=== PATIENT | male | born 1965 | race Two or more races ===

== ENCOUNTER 2024-02-02 11:44 | Inpatient (IN) | payer OTHER ==
[2024-02-02 13:08] VITALS: BMI 24.2
[2024-02-02] MEDS ORDERED: NALOXONE (NYS OPIOID OVERDOSE PROGRAM) 4 MG/0.1 ML SPRAY NS PRN (19:32)
[2024-02-02] MEDS ORDERED: hydrOXYzine PAMOATE 25 MG CAPSULE (FP) PO PRN (19:32)
[2024-02-02] MEDS ORDERED: IBUPROFEN 600 MG TABLET (FP) PO PRN (19:32)
[2024-02-02] MEDS ORDERED: ONDANSETRON *ODT* 4 MG TABLET SL PRN (19:32)
[2024-02-02] MEDS ORDERED: BENZOCAINE/MENTHOL (CHLORASEPTIC ) LOZENGE MM PRN (19:32)
[2024-02-02] MEDS ORDERED: POLYETHYLENE GLYCOL (HEALTHYLAX) 3350 17 GM PACKET PO PRN (19:32)
[2024-02-02] MEDS ORDERED: DICYCLOMINE HCL 10 MG CAPSULE PO PRN (19:32)
[2024-02-02] MEDS ORDERED: LOPERAMIDE HCL 2 MG CAPSULE PO PRN (19:32)
[2024-02-02] MEDS ORDERED: MAG HYDROX/AL HYDROX/SIMETH 30 ML UNIT-DOSE CUP PO PRN (19:32)
[2024-02-02] MEDS ORDERED: BISMUTH SUBSALICYLATE 524 MG/30 ML PO PRN (19:32)
[2024-02-02] MEDS ORDERED: MAGNESIUM HYDROX 2400MG/30ML ORAL SUSPENSION 30 ML CUP PO PRN (19:32)
[2024-02-02] MEDS ORDERED: guaiFENesin 600 MG TABLET.ER (FP) PO PRN (19:32)
[2024-02-02] MEDS ORDERED: IBUPROFEN 400 MG TABLET (FP) PO PRN (19:32)
[2024-02-02] MEDS ORDERED: METHOCARBAMOL 500 MG TABLET PO PRN (19:32)
[2024-02-02] MEDS ORDERED: NALOXONE (NARCAN) HCL 4 MG/0.1 ML SPRAY NS PRN (19:32)
[2024-02-02] MEDS: diazePAM 5 MG TABLET PO ONE (20:40)
[2024-02-02] MEDS: METHOCARBAMOL 500 MG TABLET PO ONE (20:40)
[2024-02-02] MEDS: THIAMINE 100 MG TABLET PO SCH (22:15)
[2024-02-02] MEDS: MELATONIN 5 MG TABLETS PO SCH (22:15)
[2024-02-02] MEDS ORDERED: diazePAM 5 MG TABLET PO PRN (23:00)
[2024-02-03] MEDS ORDERED: PRENATAL VITAMINS W/ FOLIC ACID TABLET (FP) PO ONE (09:06)
[2024-02-03] MEDS: PRENATAL VITAMINS W/ FOLIC ACID TABLET (FP) PO SCH (09:08)
[2024-02-03] MEDS: BENZONATATE 200 MG CAPSULE PO PRN (09:19)
[2024-02-03 14:01] LABS: HEMOGLOBIN 13.4 GM/dL (11.7-16.9); MCH 30.6 pg (25.7-33.7); MCHC 32.6 g/dl (32.0-35.9); MEAN CELL VOLUME 93.8 fl (80-96); MEAN PLT VOLUME 7.1 fl (7.5-11.1); PLATELET COUNT 397 10^3/uL (134-434); RBC 4.37 M/mm3 (4.00-5.60); RDW 14.7 % (11.9-15.9); WHITE BLOOD COUNT 6.1 K/mm3 (4.0-10.0)
[2024-02-03 14:34] LABS: CHLORIDE 108 mmol/L (98-107); SODIUM 141 mmol/L (136-145)
[2024-02-03 14:36] LABS: ALBUMIN 3.2 g/dl (3.4-5.0); ANION GAP 5 mmol/L (4-13); BLOOD UREA NITROGEN 13.6 mg/dL (7-18); CALCIUM 9.1 mg/dL (8.5-10.1); CO2 27 mmol/L (21-32)
[2024-02-03 14:37] LABS: GLUCOSE,RANDOM 98 mg/dL (74-106)
[2024-02-03 14:40] LABS: CREATININE 0.7 mg/dL (0.55-1.3); SGOT/AST 11 U/L (15-37); SGPT/ALT 34 U/L (13-61)
[2024-02-03 14:41] LABS: TOT PROT 6.2 g/dl (6.4-8.2)
[2024-02-03 14:42] LABS: ALK PHOS 78 U/L (45-117)
[2024-02-03 15:59] LABS: BILIRUBIN,TOTAL 0.4 mg/dL (0.2-1)
[2024-02-03] MEDS: MIRTAZAPINE 30 MG TABLET PO SCH (22:07)
[2024-02-03] MEDS: OLANZapine 5 MG TABLET PO ONE (22:07)
[2024-02-03] MEDS: METHOCARBAMOL 500 MG TABLET PO PRN (22:08)
[2024-02-05] MEDS: ACETAMINOPHEN 325 MG TABLET (FP) PO PRN (17:23)
[2024-02-06 09:34] VITALS: RESP 16
[2024-02-06 13:08] VITALS: BP 110/71; PULSE 99; TEMP 97.6
== END 2024-02-06 13:39 | disposition other institution (70) | DRG 897 ==
LOC: YASAS 11:44 → Y3N 02-03 10:47
PROVIDERS: ADMIT Allergy & Immunology; ATTEND Surgery
PROC: HZ2ZZZZ Detoxification Services for Substance Abuse Treatment (ICD-10-PCS; principal; 2024-02-03)
DX: F10.20 Alcohol dependence, uncomplicated (principal); F14.20 Cocaine dependence, uncomplicated; F12.20 Cannabis dependence, uncomplicated; F17.210 Nicotine dependence, cigarettes, uncomplicated; F32.A Depression, unspecified; F41.9 Anxiety disorder, unspecified
CPT/HCPCS: 36415; 80053; 80305; 80307; 85027; 86593; 86780; 93005; 93010

== ENCOUNTER 2024-02-06 14:10 | Inpatient (IN) | payer OTHER ==
[2024-02-06] MEDS ORDERED: POLYETHYLENE GLYCOL (HEALTHYLAX) 3350 17 GM PACKET PO PRN (16:28)
[2024-02-06] MEDS ORDERED: BENZOCAINE/MENTHOL (CHLORASEPTIC ) LOZENGE MM PRN (16:28)
[2024-02-06] MEDS ORDERED: LOPERAMIDE HCL 2 MG CAPSULE PO PRN (16:28)
[2024-02-06] MEDS ORDERED: ACETAMINOPHEN 325 MG TABLET (FP) PO PRN (16:28)
[2024-02-06] MEDS ORDERED: hydrOXYzine PAMOATE 25 MG CAPSULE (FP) PO PRN (16:28)
[2024-02-06] MEDS ORDERED: METHOCARBAMOL 500 MG TABLET PO PRN (16:28)
[2024-02-06] MEDS ORDERED: MAG HYDROX/AL HYDROX/SIMETH 30 ML UNIT-DOSE CUP PO PRN (16:28)
[2024-02-06] MEDS ORDERED: guaiFENesin 600 MG TABLET.ER (FP) PO PRN (16:28)
[2024-02-06] MEDS ORDERED: BENZONATATE 200 MG CAPSULE PO PRN (16:28)
[2024-02-06] MEDS ORDERED: MAGNESIUM HYDROX 2400MG/30ML ORAL SUSPENSION 30 ML CUP PO PRN (16:28)
[2024-02-06] MEDS ORDERED: MIRTAZAPINE 15 MG TABLET (FP) ONE (21:42)
[2024-02-06] MEDS: OLANZapine 5 MG TABLET PO SCH (21:43)
[2024-02-06] MEDS: MIRTAZAPINE 30 MG TABLET PO SCH (21:43)
[2024-02-06] MEDS: MELATONIN 5 MG TABLETS PO SCH (21:43)
[2024-02-06] MEDS: THIAMINE 100 MG TABLET PO SCH (21:43)
[2024-02-07] MEDS: PRENATAL VITAMINS W/ FOLIC ACID TABLET (FP) PO SCH (06:16)
[2024-02-09] MEDS: IBUPROFEN 600 MG TABLET (FP) PO PRN (22:04)
[2024-02-11] MEDS: IBUPROFEN 400 MG TABLET (FP) PO PRN (21:25)
[2024-02-12 07:00] VITALS: RESP 18
[2024-02-14 06:47] VITALS: BP 111/83; PULSE 100; TEMP 97.9
== END 2024-02-14 10:03 | disposition home or self-care (01) | DRG 895 ==
LOC: YASAS 14:10 → Y3NR 14:11 → Y5N 02-07 14:38
PROVIDERS: ADMIT Psychiatry & Neurology Pain Medicine; ATTEND Psychiatry & Neurology Pain Medicine
PROC: HZ42ZZZ Group Counseling for Substance Abuse Treatment, Cognitive-Behavioral (ICD-10-PCS; principal; 2024-02-06)
DX: F10.20 Alcohol dependence, uncomplicated (principal); F14.20 Cocaine dependence, uncomplicated; F12.20 Cannabis dependence, uncomplicated; F17.210 Nicotine dependence, cigarettes, uncomplicated; F41.9 Anxiety disorder, unspecified; F32.A Depression, unspecified
CPT/HCPCS: 87811

== ENCOUNTER 2024-03-29 12:03 | Inpatient (IN) | payer OTHER ==
[2024-03-29 12:49] VITALS: BMI 24.8
[2024-03-29] MEDS ORDERED: guaiFENesin 600 MG TABLET.ER (FP) PO PRN (14:25)
[2024-03-29] MEDS ORDERED: BENZONATATE 200 MG CAPSULE PO PRN (14:25)
[2024-03-29] MEDS ORDERED: BENZOCAINE/MENTHOL (CHLORASEPTIC ) LOZENGE MM PRN (14:25)
[2024-03-29] MEDS ORDERED: POLYETHYLENE GLYCOL (HEALTHYLAX) 3350 17 GM PACKET PO PRN (14:25)
[2024-03-29] MEDS ORDERED: IBUPROFEN 400 MG TABLET (FP) PO PRN (14:25)
[2024-03-29] MEDS ORDERED: LOPERAMIDE HCL 2 MG CAPSULE PO PRN (14:25)
[2024-03-29] MEDS ORDERED: DICYCLOMINE HCL 10 MG CAPSULE PO PRN (14:25)
[2024-03-29] MEDS ORDERED: NALOXONE (NARCAN) HCL 4 MG/0.1 ML SPRAY NS PRN (14:25)
[2024-03-29] MEDS ORDERED: MAGNESIUM HYDROX 2400MG/30ML ORAL SUSPENSION 30 ML CUP PO PRN (14:25)
[2024-03-29] MEDS ORDERED: chlordiazePOXIDE HCL 25 MG CAPSULE PO PRN (14:25)
[2024-03-29] MEDS ORDERED: MAG HYDROX/AL HYDROX/SIMETH 30 ML UNIT-DOSE CUP PO PRN (14:25)
[2024-03-29] MEDS ORDERED: ONDANSETRON *ODT* 4 MG TABLET SL PRN (14:25)
[2024-03-29] MEDS ORDERED: BISMUTH SUBSALICYLATE 524 MG/30 ML PO PRN (14:25)
[2024-03-29] MEDS: chlordiazePOXIDE HCL 25 MG CAPSULE PO SCH (17:11)
[2024-03-29] MEDS: FAMOTIDINE 20 MG TABLET PO SCH (22:44)
[2024-03-29] MEDS: THIAMINE 100 MG TABLET PO SCH (22:44)
[2024-03-29] MEDS: ACETAMINOPHEN 325 MG TABLET (FP) PO PRN (22:47)
[2024-03-29] MEDS: MELATONIN 5 MG TABLETS PO SCH (22:53)
[2024-03-30] MEDS: hydrOXYzine PAMOATE 25 MG CAPSULE (FP) PO PRN (09:37)
[2024-03-30] MEDS: NICOTINE 21 MG/24 HOURS TOPICAL PATCH TD SCH (09:38)
[2024-03-30] MEDS: PRENATAL VITAMINS W/ FOLIC ACID TABLET (FP) PO SCH (09:38)
[2024-03-30 13:55] LABS: HEMATOCRIT 39.5 % (35.4-49); HEMOGLOBIN 13.3 GM/dL (11.7-16.9); MCH 30.9 pg (25.7-33.7); MCHC 33.7 g/dl (32.0-35.9); MEAN CELL VOLUME 91.7 fl (80-96); MEAN PLT VOLUME 7.7 fl (7.5-11.1); PLATELET COUNT 339 10^3/uL (134-434); RBC 4.31 M/mm3 (4.00-5.60); RDW 13.9 % (11.9-15.9)
[2024-03-30 14:03] LABS: CHLORIDE 109 mmol/L (98-107); SODIUM 142 mmol/L (136-145)
[2024-03-30 14:10] LABS: CALCIUM 8.7 mg/dL (8.5-10.1); GLUCOSE,RANDOM 100 mg/dL (74-106)
[2024-03-30 14:11] LABS: ALBUMIN 2.9 g/dl (3.4-5.0); ANION GAP 5 mmol/L (4-13); BLOOD UREA NITROGEN 12.1 mg/dL (7-18); CO2 28 mmol/L (21-32)
[2024-03-30 14:14] LABS: CREATININE 0.7 mg/dL (0.55-1.3); SGOT/AST 11 U/L (15-37); SGPT/ALT 14 U/L (13-61)
[2024-03-30 14:15] LABS: BILIRUBIN,TOTAL 0.3 mg/dL (0.2-1)
[2024-03-30 14:17] LABS: ALK PHOS 67 U/L (45-117)
[2024-03-30] MEDS: MIRTAZAPINE 15 MG TABLET (FP) PO SCH (21:46)
[2024-03-30] MEDS: OLANZapine 5 MG TABLET PO SCH (21:47)
[2024-03-31] MEDS: chlordiazePOXIDE HCL 25 MG CAPSULE PO SCH (05:39)
[2024-03-31] MEDS: METHOCARBAMOL 500 MG TABLET PO PRN (10:33)
[2024-04-01] MEDS ORDERED: chlordiazePOXIDE HCL 10 MG CAPSULE PO PRN
[2024-04-01] MEDS: chlordiazePOXIDE HCL 10 MG CAPSULE PO SCH (05:55)
[2024-04-01] MEDS: IBUPROFEN 600 MG TABLET (FP) PO PRN (17:53)
[2024-04-02] MEDS: chlordiazePOXIDE HCL 10 MG CAPSULE PO SCH (06:00)
[2024-04-02] MEDS: NALTREXONE HCL 50 MG TABLET PO SCH (14:24)
[2024-04-02] MEDS: NALOXONE (NYS OPIOID OVERDOSE PROGRAM) 4 MG/0.1 ML SPRAY NS SCH (14:24)
[2024-04-03] MEDS: chlordiazePOXIDE HCL 10 MG CAPSULE PO ONE (05:50)
[2024-04-03 09:13] VITALS: BP 121/86; PULSE 111; RESP 18; TEMP 97.8
== END 2024-04-03 09:55 | disposition home or self-care (01) | DRG 897 ==
LOC: YASAS 12:03 → Y6N 14:54
PROVIDERS: ADMIT Surgery; ATTEND Surgery
PROC: HZ2ZZZZ Detoxification Services for Substance Abuse Treatment (ICD-10-PCS; principal; 2024-03-29)
DX: F10.20 Alcohol dependence, uncomplicated (principal); F14.20 Cocaine dependence, uncomplicated; F12.20 Cannabis dependence, uncomplicated; F17.210 Nicotine dependence, cigarettes, uncomplicated; F19.24 Other psychoactive substance dependence with psychoactive substance-induced mood disorder; F41.9 Anxiety disorder, unspecified; F32.A Depression, unspecified; E86.0 Dehydration; K21.9 Gastro-esophageal reflux disease without esophagitis; R76.8 Other specified abnormal immunological findings in serum; Z86.19 Personal history of other infectious and parasitic diseases
CPT/HCPCS: 36415; 71101-TC-LT-FY; 80053; 80307; 85027; 86593; 86780; 93005; 93010

== ENCOUNTER 2024-07-15 17:37 | Inpatient (IN) | payer OTHER ==
[2024-07-15 18:31] VITALS: BMI 27.4
[2024-07-15] MEDS ORDERED: NICOTINE POLACRILEX 2 MG LOZENGE BC PRN (19:13)
[2024-07-15] MEDS ORDERED: NICOTINE POLACRILEX 2 MG GUM BUC PRN (19:13)
[2024-07-15] MEDS ORDERED: LOPERAMIDE HCL 2 MG CAPSULE PO PRN (19:13)
[2024-07-15] MEDS ORDERED: MAG HYDROX/AL HYDROX/SIMETH 30 ML UNIT-DOSE CUP PO PRN (19:13)
[2024-07-15] MEDS ORDERED: MAGNESIUM HYDROX 2400MG/30ML ORAL SUSPENSION 30 ML CUP PO PRN (19:13)
[2024-07-15] MEDS ORDERED: NALOXONE (NARCAN) HCL 4 MG/0.1 ML SPRAY NS PRN (19:13)
[2024-07-15] MEDS ORDERED: BENZONATATE 200 MG CAPSULE PO PRN (19:13)
[2024-07-15] MEDS ORDERED: guaiFENesin 600 MG TABLET.ER (FP) PO PRN (19:13)
[2024-07-15] MEDS ORDERED: IBUPROFEN 400 MG TABLET (FP) PO PRN (19:13)
[2024-07-15] MEDS ORDERED: POLYETHYLENE GLYCOL (HEALTHYLAX) 3350 17 GM PACKET PO PRN (19:13)
[2024-07-16] MEDS: THIAMINE 100 MG TABLET PO SCH (01:00)
[2024-07-16] MEDS: MELATONIN 5 MG TABLETS PO SCH (01:00)
[2024-07-16] MEDS: PRENATAL VITAMINS W/ FOLIC ACID TABLET (FP) PO SCH (11:04)
[2024-07-16 11:10] LABS: HEMATOCRIT 43.3 % (40.1-51.0); HEMOGLOBIN 13.8 g/dL (13.7-17.5); MCHC 31.9 g/dl (32.3-36.5); MEAN CELL VOLUME 93.1 fl (79.0-92.2); MEAN PLT VOLUME 9.2 fl (9.4-12.4); PLATELET COUNT 294 x10^3/uL (163-337); RDW 13.7 % (12.2-16.1)
[2024-07-16 11:15] LABS: CHLORIDE 107 mmol/L (98-107); POTASSIUM 3.9 mmol/L (3.5-5.1); SODIUM 142 mmol/L (136-145)
[2024-07-16 11:18] LABS: URINE APPEARANCE CLOUDY; URINE BILIRUBIN NEGATIVE (NEGATIVE); URINE COLOR YELLOW; URINE GLUCOSE (UA) TRACE (NEGATIVE); URINE KETONE TRACE (NEGATIVE); URINE LEUK ESTERASE NEGATIVE (NEGATIVE); URINE NITRITE NEGATIVE (NEGATIVE); URINE PROTEIN TRACE (NEGATIVE); URINE UROBILINOGEN 0.2 mg/dL (0.2-1.0)
[2024-07-16 11:20] LABS: ALBUMIN 3.3 g/dl (3.4-5.0); ANION GAP 4 mmol/L (4-13); BLOOD UREA NITROGEN 14.4 mg/dL (7-18); CALCIUM 9.1 mg/dL (8.5-10.1); CO2 30 mmol/L (21-32); GLUCOSE,RANDOM 121 mg/dL (74-106)
[2024-07-16 11:22] LABS: SGPT/ALT 16 U/L (13-61)
[2024-07-16 11:23] LABS: SGOT/AST 15 U/L (15-37)
[2024-07-16 11:24] LABS: BILIRUBIN,TOTAL 0.3 mg/dL (0.2-1); TOT PROT 6.4 g/dl (6.4-8.2)
[2024-07-16 11:25] LABS: ALK PHOS 90 U/L (45-117)
[2024-07-17] MEDS: MIRTAZAPINE 15 MG TABLET (FP) PO SCH (21:34)
[2024-07-23] MEDS: IBUPROFEN 600 MG TABLET (FP) PO PRN (15:37)
[2024-07-25] MEDS: BENZOCAINE/MENTHOL (CHLORASEPTIC ) LOZENGE MM PRN (05:44)
[2024-07-25] MEDS: ACETAMINOPHEN 325 MG TABLET (FP) PO PRN (09:58)
[2024-07-25] MEDS: hydrOXYzine PAMOATE 25 MG CAPSULE (FP) PO PRN (21:27)
[2024-07-26] MEDS: P-EPHED 60MG/TRIPROLIDI 2.5MG TABLET PO PRN (03:44)
[2024-07-27 07:10] VITALS: BP 123/80; PULSE 108; RESP 18; TEMP 98.7
== END 2024-07-27 09:02 | disposition left against medical advice (07) | DRG 895 ==
LOC: YASAS 17:37 → Y3W 22:48
PROVIDERS: ADMIT Psychiatry & Neurology Pain Medicine; ATTEND Psychiatry & Neurology Pain Medicine
PROC: HZ42ZZZ Group Counseling for Substance Abuse Treatment, Cognitive-Behavioral (ICD-10-PCS; principal; 2024-07-15)
DX: F10.20 Alcohol dependence, uncomplicated (principal); U07.1 COVID-19; F14.20 Cocaine dependence, uncomplicated; F12.20 Cannabis dependence, uncomplicated; F17.210 Nicotine dependence, cigarettes, uncomplicated; F19.24 Other psychoactive substance dependence with psychoactive substance-induced mood disorder; F41.9 Anxiety disorder, unspecified; F32.A Depression, unspecified; F91.8 Other conduct disorders; Z91.199 Patient's noncompliance with other medical treatment and regimen due to unspecified reason
CPT/HCPCS: 0241U-QW; 36415; 80053; 80305; 80307; 81003; 82962; 85027; 86593; 86780